=== PATIENT | female | born 1955 | race Caucasian/White ===

== ENCOUNTER 2023-09-29 12:09 | Observation (INO) ==
[2023-09-29 13:02] LABS: Hematocrit 45.8 % (35-45); Hemoglobin 15.1 g/dL (11.5-14.3); Mean Corpuscular Hgb Conc 32.9 g/dL (31-36); Red Cell Distribution Width 14.9 % (12-17); White Blood Count 9.1 10^3/uL (3.8-11.8)
[2023-09-29 13:16] LABS: ABS Eosinophils 0.1 10^3/uL (0.0-0.5); ABS Lymphocytes 0.4 10^3/uL (1.0-4.8); ABS Monocytes 0.5 10^3/uL (0.0-0.9); ABS Nucleated RBC 0.01 10^3/ul; Eosinophil % 1.6 %; Lymphocyte % 4.8 %; Mean Platelet Volume 8.4 fL (7.5-11.2); Nucleated Red Blood Cells % 0.1 %/100WBC (0.0-0.8); Platelet Count 311 10^3/uL (150-450)
[2023-09-29 13:23] LABS: High Sens Troponin Baseline 5 pg/mL (<15)
[2023-09-29 13:51] LABS: ALT 10 U/L (7-52); Albumin 3.8 g/dL (3.2-5.2); Albumin/Globulin Ratio 1.2 (1-3); Alkaline Phosphatase 70 U/L (35-149); Blood Urea Nitrogen 19 mg/dL (6-24); CO2 Carbon Dioxide 20 mmol/L (22-32); Calcium 9.4 mg/dL (8.6-10.3); Chloride 107 mmol/L (101-111); Creatinine, Serum 0.62 mg/dL (0.51-0.95); Globulin 3.3 g/dL (2-4); Glucose 99 mg/dL (70-100); Sodium 139 mmol/L (135-145); Total Bilirubin 0.8 mg/dL (0.2-1.0); Total Protein 7.1 g/dL (6.4-8.9); eGFR CKD-EPI 97.5 (>60)
[2023-09-29 14:39] LABS: High Sensitivity Troponin 1 Hr 3 pg/mL (<15)
[2023-09-29 14:56] LABS: Anion Gap 12 mmol/L (2-16)
[2023-09-29] MEDS ORDERED: Iohexol 350 (CONTRAST) 500 ML MDV IV ONE (15:24)
[2023-09-29 15:36] LABS: Potassium, Whole Blood 3.9 mmol/L (3.4-4.5)
[2023-09-29 19:01] LABS: Magnesium 1.9 mg/dL (1.9-2.7)
[2023-09-29] MEDS ORDERED: Magnesium Sulfate 2 gm BAG 2 GM/50 ML BAG IVPB ONE (19:36)
[2023-09-29] MEDS ORDERED: Enoxaparin 40 MG/0.4 ML SYR SUBCUT SCH (20:00)
[2023-09-30] MEDS ORDERED: Lactated Ringers 1000 ml BAG 1,000 ML IV SCH (07:00)
[2023-09-30 08:41] LABS: C Reactive Protein 20.41 mg/L (<8.01); Creatinine, Serum 0.63 mg/dL (0.51-0.95); Magnesium 2.3 mg/dL (1.9-2.7); Potassium 3.6 mmol/L (3.5-5.0); eGFR CKD-EPI 97.2 (>60)
[2023-09-30] MEDS ORDERED: Potassium Chlor 20 meq TAB.ER PO ONE (09:11)
[2023-09-30 14:38] VITALS: BP 165/97
== END 2023-09-30 14:35 | disposition home or self-care (01) ==
LOC: ED 12:09 → EDHOLD 12:09 → SUATTDRO 18:21 → MEDTELE 09-30 13:01 → EDHOLD 09-30 14:34
PROVIDERS: ADMIT Student in an Organized Health Care Education/Training Program; ATTEND Hospitalist